=== PATIENT | male | born 1945 ===

== ENCOUNTER 2017-01-10 20:22 | Emergency (ER) | payer MEDICARE, BC ==
--- NOTE | ~2017-01-10 | ER ---
PATIENT'S NAME: ELIZABETH [facility] AGE: 71 Y [address] ROOM: [place] [address] LOCATION: ED ADMIT DATE: 01/10/2017 ER/Outpatient Report DISCHARGE DATE: 01/10/2017 FAMILY PHYSICIAN: Vipul Hughes MD ATTENDING PHYSICIAN: Jose David Thomas Time of Arrival: 2021. Time of Evaluation: 2039. CHIEF COMPLAINT: Injury to chest from fall. HISTORY OF PRESENT ILLNESS: This is a 71-year-old male who presents to the ER with left chest pain after a fall occurred 2 hours prior to arrival. The patient states he was walking in his shop when he stumbled, striking his left front chest on a 2x4. The patient states that his pain increases with respirations. He states that it is really tender to palpate and he did not take anything prior to arrival. He denies any other injury at this time. ALLERGIES: NO KNOWN ALLERGIES. MEDICATIONS: Please see medication list nurse's notes. PAST MEDICAL HISTORY: 1. [id number] diabetic. 2. Hypertension. PAST SURGERIES: Knee surgery and shoulder surgery. SOCIAL HISTORY: Drinks 6-pack of beers a day. REVIEW OF SYSTEMS: All systems reviewed and are negative with the exception of those discussed in the HPI. PHYSICAL EXAMINATION: VITAL SIGNS: Height 5 feet and 6 inches stated, weight 101.2 kg taken, blood pressure is 156/81, pulse 69, respirations 20, temperature 97.9 degrees tympanically, and saturations 97% on room air. Gagandeep Coma Score is 15. GENERAL: Alert, calm, well-developed male, in moderate distress. PATIENT'S NAME: ELIZABETH [facility] AGE: 71 Y [address] ROOM: [place] [address] LOCATION: ED ADMIT DATE: 01/10/2017 ER/Outpatient Report DISCHARGE DATE: 01/10/2017 FAMILY PHYSICIAN: Vipul Hughes MD ATTENDING PHYSICIAN: Jose David Thomas HEENT: Head: Normocephalic. Eyes: Pupils are equal and reactive to light. He does display moist mucous membranes. LUNGS: Clear to auscultation bilaterally. HEART: Regular rate and rhythm. EXTREMITIES: No clubbing or cyanosis. He has full range of motion of all limbs. MUSCULOSKELETAL: He does have left anterior chest wall pain with palpation just under his pectoral. There is no bruising noted. LABORATORY DATA AND X-RAYS: Labs, none were done. Left rib details and chest were done and no obvious fracture was seen, but we are going to have this over read by Radiology. IMPRESSION: Left chest wall pain secondary to fall. ASSESSMENT AND PLAN: We did give the patient Yuliana here in the emergency room for pain. We will have him splint his side. He needs to do deep breathing exercises. We will send him home with a prescription of Percocet to use as directed. He needs ice any sore area. He needs to follow up with his primary care physician in 1 week or sooner if he worsens. I will call if there is any discrepancy in his x-ray. The patient and the patient's understand and agree with care. MADI SHEPHERD PA-C FOR MD ALTON TEJADA/pardeep /[id number] d: 01/10/173 t: 01/21/17 1817, OUTPATIENT REPORT
== END 2017-01-10 21:20 | disposition disaster alternative care site (69) ==
LOC: GMED 20:22 → GACC 20:22 → GMED 21:20
DX: R07.89 Other chest pain (principal); I10 Essential (primary) hypertension; E11.9 Type 2 diabetes mellitus without complications; Z98.890 Other specified postprocedural states; Z79.84 Long term (current) use of oral hypoglycemic drugs; Z79.899 Other long term (current) drug therapy; W01.10XA Fall on same level from slipping, tripping and stumbling with subsequent striking against unspecified object, initial encounter; Y92.513 Shop (commercial) as the place of occurrence of the external cause

== ENCOUNTER 2017-01-11 17:45 | Emergency (ER) | payer MEDICARE, BC ==
--- NOTE | ~2017-01-11 | ER ---
PATIENT'S NAME: PK JOHNSON [facility] AGE: 71 Y [address] ROOM: [place] [id number] LOCATION: [facility] ADMIT DATE: 01/11/2017 ER/Outpatient Report DISCHARGE DATE: 01/11/2017 FAMILY PHYSICIAN: Vipul Hughes MD ATTENDING PHYSICIAN: Toribio Jasso Time of Arrival: 1800 hours. Time of Evaluation: 1820 hours. CHIEF COMPLAINT: This is a 71-year-old gentleman, he is previously healthy. He was in after a fall that occurred yesterday. He was working in the shop and he fell on the edge of 2x4 resulting in a sharp stabbing pain in his left anterior chest. He was evaluated here and was sent home with oral Percocet. He has been taking one every 3-4 hours and has not been controlling his pain. PAST MEDICAL HISTORY: Significant for hypertension, nondependent diabetes. CURRENT MEDICATIONS: See list. REVIEW OF SYSTEMS: Otherwise negative. SOCIAL HISTORY: He is a nonsmoker. He drinks a 6-pack daily. PHYSICAL EXAMINATION: GENERAL: Alert, pleasant, cooperative male, in no acute physiologic distress. He was uncomfortable particularly with movement. SKIN: Warm and dry. Color is normal. HEAD, EARS, EYES, NOSE, AND THROAT: Revealed no trauma. NECK: Nontender. CHEST: He had well-localized tenderness and a palpable deformity of the left 4th or 5th rib adjacent to the sternum. There is no crepitus. LUNGS: Clear. Breath sounds are equal. ABDOMEN: Soft and nontender. EXTREMITIES: Normal. ASSESSMENT: Clinical rib fracture. PLAN: He is instructed to take the Percocet 2 every 4 hours. Incentive spirometry 5- PATIENT'S NAME: PK JOHNSON [facility] AGE: 71 Y [address] ROOM: [place], [place] [address] LOCATION: [facility] ADMIT DATE: 01/11/2017 ER/Outpatient Report DISCHARGE DATE: 01/11/2017 FAMILY PHYSICIAN: Vipul Hughes MD ATTENDING PHYSICIAN: Toribio Jasso 6 times per day and follow up with his regular doctor as previously arranged. CHARLES RAMAN MD JDB/modl /[id number] d: 01/12/17 1043 t: 01/15/17 0550, OUTPATIENT REPORT
== END 2017-01-11 18:59 | disposition disaster alternative care site (69) ==
LOC: GACC 17:45
DX: R07.89 Other chest pain (principal); I10 Essential (primary) hypertension; E11.9 Type 2 diabetes mellitus without complications; Z98.890 Other specified postprocedural states; W18.09XA Striking against other object with subsequent fall, initial encounter; Y92.513 Shop (commercial) as the place of occurrence of the external cause
CPT/HCPCS: J1170